=== PATIENT | male | born 1980 | race Caucasian/White ===

== ENCOUNTER 2018-03-12 06:43 | Day surgery (SDC) | payer OTHER ==
[~2018-03-12] VITALS: Ht 185.4 cm; Wt 93.0 kg
[2018-03-12 07:44] VITALS: BP 122/71; Ht 185.4 cm; Wt 93.0 kg
--- NOTE | 2018-03-12 15:01 | OP ---
PATIENT NAME: GENET NETTLES MEDICAL RECORD: [id number] LOCATION:[facility] ADMISSION DATE: SURGEON: EMILY CARNES MD DATE OF OPERATION: 03/12/2018 SURGEON: Emily Carnes MD ANESTHESIA: General anesthesia by Mo Zambrano CRNA DIAGNOSIS: Male sterilization. PROCEDURE: Bilateral vasectomy. FINDINGS: Bilateral vas deferens. SPECIMENS: Bilateral vas deferens. ESTIMATED BLOOD LOSS: None. CLINICAL HISTORY: This is a 38-year-old male, who is requesting male sterilization. He has 6 children and he does not want to have any more children. He is otherwise in good health. He is not allergic to any medications. He was given Ancef director recreation to the OR. DESCRIPTION OF PROCEDURE: The patient was given general anesthetic. He was in supine position. He was then shaved and prepped. I started on the right side. The right vas was easily palpated through the scrotal skin. Towel clamps were placed on either the proximal and distal ends of the vas to isolate the segment. The overlying skin was then infiltrated with 0.25% Marcaine containing epinephrine. A 1-cm incision was made. Using a right angle dissector, we were able to isolate the vas deferens. The proximal and distal ends were clamped with a hemostat. The intervening segment was excised using a #15 blade. This segment was then sent to pathology for diagnosis. The cut ends were cauterized with the Bovie. The cut ends were ligated using 4-0 Prolene ties. With no evidence of bleeding, the vasal ends were placed back in the hemiscrotum and the scrotum was closed using a 4-0 Monocryl simple interrupted sutures. The identical procedure was performed on the left side. At the end of the procedure, fluffs and mesh panties were given to the patient. I will see the patient in followup next week to check on wound healing. TRANSINT:[id number] Voice Confirmation ID: [id number] DOCUMENT ID: [id number] EMILY CARNES MD at 1501 CC: [id number] DICTATION DATE: 03/12/18 1118 SCHOOL PSYCHOLOGIST ASSISTANT: 03/12/[address] [facility] 03/12/18 [place] [address]
== END 2018-03-12 12:50 | disposition home or self-care (01) ==
LOC: D.OPS 06:43
DX: Z30.2 Encounter for sterilization (principal); Z01.812 Encounter for preprocedural laboratory examination